=== PATIENT | male | born 1950 | race Caucasian/White ===

== ENCOUNTER 2023-01-31 09:30 | Emergency (ER) | payer OTHER ==
[2023-01-31 09:45] VITALS: BMI 25.8
[2023-01-31 10:07] LABS: BASO % 0.7 % (0-2.0); EOS % 2.3 % (0-4.5); HEMATOCRIT 37.2 % (35.4-49); HEMOGLOBIN 12.9 GM/dL (11.7-16.9); LYMPH % 12.1 % (8-40); MCH 28.6 pg (25.7-33.7); MCHC 34.7 g/dl (32.0-35.9); MEAN CELL VOLUME 82.5 fl (80-96); MEAN PLT VOLUME 8.3 fl (7.5-11.1); MONO % 6.4 % (3.8-10.2); NEUT % 78.5 % (42.8-82.8); PLATELET COUNT 313 10^3/uL (134-434); RBC 4.51 M/mm3 (4.00-5.60); RDW 13.6 % (11.9-15.9); WHITE BLOOD COUNT 12.9 K/mm3 (4.0-10.0)
[2023-01-31] MEDS ORDERED: LIDOCAINE HCL 2% (20ML MULTI-DOSE VIAL) ONE (10:14)
[2023-01-31 10:30] LABS: POTASSIUM 4.6 mmol/L (3.5-5.1)
[2023-01-31 10:31] LABS: CALCIUM 9.3 mg/dL (8.5-10.1)
[2023-01-31 10:33] LABS: ALBUMIN 3.2 g/dl (3.4-5.0); BLOOD UREA NITROGEN 34.4 mg/dL (7-18)
[2023-01-31 10:35] LABS: CREATININE 1.6 mg/dL (0.55-1.3)
[2023-01-31 10:37] LABS: BILIRUBIN,TOTAL 0.5 mg/dL (0.2-1); TOT PROT 6.9 g/dl (6.4-8.2)
[2023-01-31 11:09] VITALS: RESP 15
[2023-01-31] MEDS ORDERED: LIDOCAINE HCL 2% (50ML VIAL) SQ ONE (11:12)
[2023-01-31] MEDS ORDERED: DIPHTH,PERTUSS(ACELL),TET 0.5 ML DISP.SYRIN IM ONE ×2 (11:13→11:15)
[2023-01-31] MEDS ORDERED: SODIUM CHLORIDE 0.9% 500 ML INFUS.BAG IV ONE (11:37)
[2023-01-31] MEDS ORDERED: QUEtiapine FUMARATE 25 MG TABLET PO ONE (12:06)
[2023-01-31] MEDS ORDERED: QUEtiapine FUMARATE 25 MG TABLET ONE (12:08)
[2023-01-31 12:28] LABS: EPI CELLS 1 /uL (0-25.1); HYALINE CASTS 0 /uL (0-3.1); PH,URINE 7.5 (5.0-8.0); URINE APPEARANCE CLEAR; URINE BACTERIA 2 /uL (0-1359); URINE BILIRUBIN NEGATIVE (NEGATIVE); URINE COLOR YELLOW; URINE GLUCOSE (UA) NEGATIVE (NEGATIVE); URINE KETONE NEGATIVE (NEGATIVE); URINE LEUK ESTERASE NEGATIVE (NEGATIVE); URINE NITRITE NEGATIVE (NEGATIVE); URINE PROTEIN 1+ (NEGATIVE); URINE RBC 12 /uL (0-23.9); URINE UROBILINOGEN 0.2 mg/dL (0.2-1.0); URINE WBC 1 /uL (0-25.8)
[2023-01-31] MEDS ORDERED: HALOPERIDOL LACTATE 5 MG/ML IM ONE ×2 (14:02→14:06)
[2023-01-31 15:17] VITALS: BP 110/73; PULSE 68; TEMP 98.4
== END 2023-01-31 15:35 | disposition short-term general hospital (02) ==
LOC: JER 09:30
PROC: 0HQ1XZZ Repair Face Skin, External Approach (ICD-10-PCS; principal; 2023-01-31)
PROC: 3E023GC Introduction of Other Therapeutic Substance into Muscle, Percutaneous Approach (ICD-10-PCS; 2023-01-31)
PROC: 3E0234Z Introduction of Serum, Toxoid and Vaccine into Muscle, Percutaneous Approach (ICD-10-PCS; 2023-01-31)
DX: S22.32XA Fracture of one rib, left side, initial encounter for closed fracture (principal); S12.120A Other displaced dens fracture, initial encounter for closed fracture; S01.112A Laceration without foreign body of left eyelid and periocular area, initial encounter; W19.XXXA Unspecified fall, initial encounter
CPT/HCPCS: 36415; 70450-TC; 71045-TC-FY; 72125-TC; 72170-TC-FY; 80053; 81003; 82570; 83935; 84300; 84484; 85025; 87086; 90715; 93005; 93010; 99285-25

== ENCOUNTER 2023-03-02 11:35 | Inpatient (IN) | payer OTHER ==
[2023-03-02] MEDS ORDERED: VANCOMYCIN 1,000 MG in DEXTROSE 5%-WATER - 250 ML IVPB ONE (11:58)
[2023-03-02] MEDS ORDERED: ACETAMINOPHEN 1000 MG/100 ML BAG IVPB ONE (11:58)
[2023-03-02] MEDS ORDERED: FENTANYL NS IVPB 500 MCG/100 ML BAG IVPB SCH (12:00)
[2023-03-02] MEDS ORDERED: CEFEPIME HCL 1 GM VIAL (RESTRICTED TO ID) IVPB ONE (12:01)
[2023-03-02] MEDS ORDERED: FENTANYL NS IVPB 500 MCG/100 ML BAG IVPB ONE (12:04)
[2023-03-02] MEDS ORDERED: ACETAMINOPHEN INJECTION 100 ML IVPB ONE (12:04)
[2023-03-02] MEDS ORDERED: CEFEPIME 1 GM/100 ML BAG IVPB ONE (12:05)
[2023-03-02] MEDS ORDERED: VANCOMYCIN 1 GRAM (PRE-DOCKED) 1,000 MG/250 ML BAG IVPB ONE (12:05)
[2023-03-02 12:07] LABS: ARTERIAL BLD GAS O2 SATURATION 75.4 % (95-98); ARTERIAL BLOOD GAS BASE EXCESS -8.5 mmol/L (-2-2); ARTERIAL BLOOD GAS PO2 45.4 mmHg (80-100); ARTERIAL BLOOD GAS pH 7.267 (7.350-7.450)
[2023-03-02 12:26] LABS: BASO % 0.3 % (0-2.0); MCH 27.7 pg (25.7-33.7); MCHC 32.3 g/dl (32.0-35.9); MEAN CELL VOLUME 85.8 fl (80-96); MEAN PLT VOLUME 9.9 fl (7.5-11.1); MONO % 11.2 % (3.8-10.2); NEUT % 80.5 % (42.8-82.8); PLATELET COUNT 143 10^3/uL (134-434); RBC 4.32 M/mm3 (4.00-5.60); RDW 15.6 % (11.9-15.9); WHITE BLOOD COUNT 17.3 K/mm3 (4.0-10.0)
[2023-03-02 12:34] LABS: INR 1.4 (0.83-1.09); PROTHROMBIN TIME (PATIENT) 16.2 SEC (9.7-13.0)
[2023-03-02 12:36] LABS: ACTIVATED PTT 26.5 SECONDS (25.2-36.5)
[2023-03-02 12:48] LABS: CHLORIDE 141 mmol/L (98-107); POTASSIUM 3.1 mmol/L (3.5-5.1)
[2023-03-02 12:50] LABS: CALCIUM 7.3 mg/dL (8.5-10.1)
[2023-03-02 12:51] LABS: CO2 18 mmol/L (21-32); GLUCOSE,RANDOM 168 mg/dL (74-106)
[2023-03-02 12:54] LABS: CREATININE 3.9 mg/dL (0.55-1.3); SGOT/AST 24 U/L (15-37); SGPT/ALT 31 U/L (13-61)
[2023-03-02 12:55] LABS: BILIRUBIN,TOTAL 0.5 mg/dL (0.2-1)
[2023-03-02 12:57] LABS: ALK PHOS 69 U/L (45-117)
[2023-03-02] MEDS ORDERED: NOREPINEPHRINE BITARTRATE 4,000 MCG in DEXTROSE 5%-WATER - 496 ML IV SCH ×2 (13:00→13:15)
[2023-03-02 13:02] LABS: ANION GAP 2 mmol/L (4-13); BLOOD UREA NITROGEN 115.8 mg/dL (7-18)
[2023-03-02 13:03] LABS: SODIUM 160 mmol/L (136-145)
[2023-03-02] MEDS: LACTATED RINGERS SOLUTION 1,000 ML/1,000 ML INFUS.BAG IV SCH (13:07)
[2023-03-02 13:35] LABS: LACTIC ACID 2.9 mmol/L (0.4-2.0)
[2023-03-02 14:01] LABS: EPI CELLS 20 /uL (0-25.1); HYALINE CASTS 4 /uL (0-3.1); URINE APPEARANCE CLOUDY; URINE BACTERIA 74 /uL (0-1359); URINE BILIRUBIN NEGATIVE (NEGATIVE); URINE COLOR YELLOW; URINE GLUCOSE (UA) NEGATIVE (NEGATIVE); URINE KETONE NEGATIVE (NEGATIVE); URINE LEUK ESTERASE NEGATIVE (NEGATIVE); URINE NITRITE NEGATIVE (NEGATIVE); URINE PROTEIN 2+ (NEGATIVE); URINE RBC 51 /uL (0-23.9); URINE UROBILINOGEN 0.2 mg/dL (0.2-1.0); URINE WBC 23 /uL (0-25.8)
[2023-03-02] MEDS: HEPARIN NA (PORCINE) 5,000 UNITS/ML 1ML VIAL SQ SCH ×2 (14:13→21:04)
[2023-03-02] MEDS: KCL 10 MEQ IVPB 10 MEQ/100 ML INFUS.BAG IVPB SCH ×3 (14:13→18:51)
[2023-03-02] MEDS ORDERED: HEPARIN NA (PORCINE) 5,000 UNITS/ML 1ML VIAL ONE (14:15)
[2023-03-02] MEDS ORDERED: KCL 10 MEQ IVPB 30 MEQ/300 ML INFUS.BAG IVPB ONE (14:15)
[2023-03-02] MEDS ORDERED: NOREPINEPHRINE 0.9 % NACL 8 MG/250 ML BAG IVPB SCH (18:00)
[2023-03-02 18:22] LABS: CHLORIDE 133 mmol/L (98-107); POTASSIUM 4.2 mmol/L (3.5-5.1); SODIUM 154 mmol/L (136-145)
[2023-03-02 18:25] LABS: ANION GAP -2 mmol/L (4-13); CO2 23 mmol/L (21-32)
[2023-03-02 18:30] LABS: BLOOD UREA NITROGEN 113.3 mg/dL (7-18); GLUCOSE,RANDOM 214 mg/dL (74-106)
[2023-03-02] MEDS: NOREPINEPHRINE BITARTRATE/D5W 8 MG/250 ML BAG IVPB SCH (18:35)
[2023-03-02] MEDS: PROPOFOL 1,000,000 MCG/100 ML VIAL IVPB SCH (18:36)
[2023-03-02] MEDS: ATORVASTATIN CA 80 MG TABLET (FP) GT SCH (20:10)
[2023-03-02] MEDS: VALPROATE SODIUM 250 MG/5 ML UNIT DOSE CUP GT SCH ×2 (20:10→23:31)
[2023-03-02] MEDS: CHLORHEXIDINE GLUCONATE 4% CLEANSER FOR DECOLONIZATION TP SCH (21:03)
[2023-03-02] MEDS: CEFEPIME 1 GM in DEXTROSE 5%-WATER 100 ML IVPB SCH (21:03)
[2023-03-02] MEDS: SENNOSIDES 8.8 MG/5 ML SYRUP GT SCH (21:04)
[2023-03-02] MEDS: SILVER SULFADIAZINE 1% TOP CREAM 400 GM JAR TP SCH (21:04)
[2023-03-02] MEDS: DOCUSATE NA 100 MG/10 ML UNIT-DOSE CUPS GT SCH (21:04)
[2023-03-02] MEDS: DONEPEZIL HCL 5 MG TABLET (FP) GT SCH (21:04)
[2023-03-02] MEDS: MEMANTINE HCL 5 MG TABLET (UD) GT SCH (21:04)
[2023-03-02] MEDS: MUPIROCIN 2% TOPICAL OINTMENT FOR DECOLONIZATION NS SCH (21:05)
[2023-03-02] MEDS: INSULIN SLIDING SCALE (NOVOLOG) 1 VIAL SQ SCH (21:07)
[2023-03-02] MEDS ORDERED: DOCUSATE SODIUM 100 MG CAPSULE (FP) PO SCH (22:00)
[2023-03-03] MEDS: HEPARIN NA (PORCINE) 5,000 UNITS/ML 1ML VIAL SQ SCH ×3 (06:13→21:19)
[2023-03-03] MEDS: VALPROATE SODIUM 250 MG/5 ML UNIT DOSE CUP GT SCH ×3 (06:13→18:10)
[2023-03-03] MEDS: INSULIN SLIDING SCALE (NOVOLOG) 1 VIAL SQ SCH ×4 (06:13→21:21)
[2023-03-03 07:52] LABS: POTASSIUM 3.9 mmol/L (3.5-5.1)
[2023-03-03 07:55] LABS: MAGNESIUM 2.7 mg/dL (1.8-2.4)
[2023-03-03 07:56] LABS: BLOOD UREA NITROGEN 101.6 mg/dL (7-18)
[2023-03-03 07:58] LABS: CREATININE 3.4 mg/dL (0.55-1.3); PHOSPHOROUS 3.8 mg/dL (2.5-4.9)
[2023-03-03 08:00] LABS: BILIRUBIN,TOTAL 0.3 mg/dL (0.2-1); TOT PROT 5.3 g/dl (6.4-8.2)
[2023-03-03 08:14] LABS: HEMATOCRIT 37.5 % (35.4-49); HEMOGLOBIN 11.6 GM/dL (11.7-16.9); MCH 27.2 pg (25.7-33.7); MEAN CELL VOLUME 87.8 fl (80-96); MEAN PLT VOLUME 10.1 fl (7.5-11.1); PLATELET COUNT 159 10^3/uL (134-434); RBC 4.27 M/mm3 (4.00-5.60); RDW 15.2 % (11.9-15.9); WHITE BLOOD COUNT 13.6 K/mm3 (4.0-10.0)
[2023-03-03] MEDS ORDERED: LACTATED RINGERS SOLUTION 1,000 ML/1,000 ML INFUS.BAG IV STA (08:19)
[2023-03-03] MEDS ORDERED: FENTANYL IVPB 500 MCG/100 ML BAG IVPB SCH (09:00)
[2023-03-03] MEDS: MUPIROCIN 2% TOPICAL OINTMENT FOR DECOLONIZATION NS SCH ×2 (11:07→21:19)
[2023-03-03] MEDS: CEFEPIME 1 GM in DEXTROSE 5%-WATER 100 ML IVPB SCH ×2 (11:14→21:20)
[2023-03-03] MEDS: ASPIRIN 81 MG CHEWABLE TABLETS GT SCH (11:14)
[2023-03-03] MEDS: DOCUSATE NA 100 MG/10 ML UNIT-DOSE CUPS GT SCH ×2 (11:14→21:19)
[2023-03-03] MEDS: SILVER SULFADIAZINE 1% TOP CREAM 400 GM JAR TP SCH (11:20)
[2023-03-03] MEDS: MEMANTINE HCL 5 MG TABLET (UD) GT SCH ×2 (13:12→21:20)
[2023-03-03] MEDS: LACTATED RINGERS SOLUTION 1,000 ML/1,000 ML INFUS.BAG IV SCH (13:13)
[2023-03-03] MEDS: PROPOFOL 1,000,000 MCG/100 ML VIAL IVPB SCH ×2 (18:11→21:33)
[2023-03-03] MEDS: ATORVASTATIN CA 80 MG TABLET (FP) GT SCH (20:45)
[2023-03-03] MEDS: DONEPEZIL HCL 5 MG TABLET (FP) GT SCH (21:19)
[2023-03-03] MEDS: CHLORHEXIDINE GLUCONATE 4% CLEANSER FOR DECOLONIZATION TP SCH (21:20)
[2023-03-03] MEDS: SENNOSIDES 8.8 MG/5 ML SYRUP GT SCH (21:21)
[2023-03-03] MEDS: NOREPINEPHRINE BITARTRATE/D5W 8 MG/250 ML BAG IVPB SCH (21:34)
[2023-03-04] MEDS: LACTATED RINGERS SOLUTION 1,000 ML/1,000 ML INFUS.BAG IV SCH (00:58)
[2023-03-04 06:12] LABS: BASO % 0.4 % (0-2.0); EOS % 3.5 % (0-4.5); HEMATOCRIT 33.7 % (35.4-49); HEMOGLOBIN 10.6 GM/dL (11.7-16.9); LYMPH % 5.8 % (8-40); MCH 27.4 pg (25.7-33.7); MCHC 31.5 g/dl (32.0-35.9); MEAN CELL VOLUME 87.1 fl (80-96); MEAN PLT VOLUME 9.5 fl (7.5-11.1); MONO % 6.9 % (3.8-10.2); NEUT % 83.4 % (42.8-82.8); PLATELET COUNT 148 10^3/uL (134-434); RBC 3.86 M/mm3 (4.00-5.60); WHITE BLOOD COUNT 14.8 K/mm3 (4.0-10.0)
[2023-03-04 06:24] LABS: INR 1.28 (0.83-1.09); PROTHROMBIN TIME (PATIENT) 14.8 SEC (9.7-13.0)
[2023-03-04 06:27] LABS: ACTIVATED PTT 32.5 SECONDS (25.2-36.5)
[2023-03-04] MEDS: VALPROATE SODIUM 250 MG/5 ML UNIT DOSE CUP GT SCH ×4 (06:30→18:05)
[2023-03-04] MEDS: HEPARIN NA (PORCINE) 5,000 UNITS/ML 1ML VIAL SQ SCH ×3 (06:30→21:56)
[2023-03-04 06:46] LABS: CHLORIDE 136 mmol/L (98-107); POTASSIUM 3.7 mmol/L (3.5-5.1)
[2023-03-04 06:49] LABS: ALBUMIN 1.8 g/dl (3.4-5.0); CO2 25 mmol/L (21-32); GLUCOSE,RANDOM 117 mg/dL (74-106); MAGNESIUM 2.4 mg/dL (1.8-2.4)
[2023-03-04 06:50] LABS: ANION GAP 0 mmol/L (4-13); BLOOD UREA NITROGEN 74.1 mg/dL (7-18); SODIUM 161 mmol/L (136-145)
[2023-03-04 06:52] LABS: CREATININE 2.4 mg/dL (0.55-1.3); PHOSPHOROUS 2.7 mg/dL (2.5-4.9); SGOT/AST 26 U/L (15-37); SGPT/ALT 26 U/L (13-61)
[2023-03-04 06:53] LABS: BILIRUBIN,TOTAL 0.3 mg/dL (0.2-1)
[2023-03-04 06:54] LABS: ALK PHOS 77 U/L (45-117)
[2023-03-04] MEDS: INSULIN SLIDING SCALE (NOVOLOG) 1 VIAL SQ SCH ×4 (07:14→22:31)
[2023-03-04] MEDS: CEFEPIME 1 GM in DEXTROSE 5%-WATER 100 ML IVPB SCH ×2 (09:30→21:56)
[2023-03-04] MEDS: DOCUSATE NA 100 MG/10 ML UNIT-DOSE CUPS GT SCH ×2 (09:32→22:32)
[2023-03-04] MEDS: MUPIROCIN 2% TOPICAL OINTMENT FOR DECOLONIZATION NS SCH ×2 (09:32→21:56)
[2023-03-04] MEDS: ASPIRIN 81 MG CHEWABLE TABLETS GT SCH (09:32)
[2023-03-04] MEDS: MEMANTINE HCL 5 MG TABLET (UD) GT SCH ×2 (09:35→22:32)
[2023-03-04] MEDS ORDERED: VANCOMYCIN/WATER FOR INJ (PEG) 1,000 MG/200 ML BAG IVPB ONE (10:11)
[2023-03-04] MEDS ORDERED: DEXTROSE 5%-WATER - 1,000 ML IV SCH ×3 (11:15→20:52)
[2023-03-04] MEDS: SILVER SULFADIAZINE 1% TOP CREAM 400 GM JAR TP SCH (15:51)
[2023-03-04 20:49] LABS: POTASSIUM 3.3 mmol/L (3.5-5.1)
[2023-03-04 20:50] LABS: CALCIUM 8.1 mg/dL (8.5-10.1)
[2023-03-04 20:54] LABS: CREATININE 1.9 mg/dL (0.55-1.3)
[2023-03-04] MEDS: KCL 20 MEQ PREMIX BAG 100 ML IVPB SCH ×2 (21:30→22:48)
[2023-03-04] MEDS: CHLORHEXIDINE GLUCONATE 4% CLEANSER FOR DECOLONIZATION TP SCH (21:56)
[2023-03-04] MEDS: ATORVASTATIN CA 80 MG TABLET (FP) GT SCH (22:32)
[2023-03-04] MEDS: DONEPEZIL HCL 5 MG TABLET (FP) GT SCH (22:32)
[2023-03-04] MEDS: SENNOSIDES 8.8 MG/5 ML SYRUP GT SCH (22:33)
[2023-03-05] MEDS: VALPROATE SODIUM 250 MG/5 ML UNIT DOSE CUP GT SCH ×3 (01:06→11:32)
[2023-03-05] MEDS: HEPARIN NA (PORCINE) 5,000 UNITS/ML 1ML VIAL SQ SCH ×3 (05:17→23:00)
[2023-03-05] MEDS: INSULIN SLIDING SCALE (NOVOLOG) 1 VIAL SQ SCH ×4 (06:00→22:54)
[2023-03-05 06:58] LABS: HEMATOCRIT 36.1 % (35.4-49); HEMOGLOBIN 11.6 GM/dL (11.7-16.9); MCH 27.4 pg (25.7-33.7); MCHC 32.1 g/dl (32.0-35.9); MEAN CELL VOLUME 85.5 fl (80-96); MEAN PLT VOLUME 9.6 fl (7.5-11.1); PLATELET COUNT 156 10^3/uL (134-434); RBC 4.22 M/mm3 (4.00-5.60); RDW 14.8 % (11.9-15.9); WHITE BLOOD COUNT 14.7 K/mm3 (4.0-10.0)
[2023-03-05 07:28] LABS: POTASSIUM 3.3 mmol/L (3.5-5.1)
[2023-03-05 07:32] LABS: BLOOD UREA NITROGEN 50.1 mg/dL (7-18); MAGNESIUM 2.1 mg/dL (1.8-2.4)
[2023-03-05 07:33] LABS: PHOSPHOROUS 1.5 mg/dL (2.5-4.9)
[2023-03-05 07:35] LABS: BILIRUBIN,TOTAL 0.6 mg/dL (0.2-1); CREATININE 1.7 mg/dL (0.55-1.3); TOT PROT 5.4 g/dl (6.4-8.2)
[2023-03-05 09:10] LABS: ANISOCYTOSIS 0; MACROCYTOSIS 0
[2023-03-05] MEDS: CEFEPIME 1 GM in DEXTROSE 5%-WATER 100 ML IVPB SCH ×2 (09:10→22:59)
[2023-03-05] MEDS: KCL 20 MEQ PREMIX BAG 100 ML IVPB SCH ×2 (09:11→11:15)
[2023-03-05] MEDS: MEMANTINE HCL 5 MG TABLET (UD) GT SCH (09:46)
[2023-03-05] MEDS: DOCUSATE NA 100 MG/10 ML UNIT-DOSE CUPS GT SCH (09:46)
[2023-03-05] MEDS: ASPIRIN 81 MG CHEWABLE TABLETS GT SCH (09:46)
[2023-03-05] MEDS: MUPIROCIN 2% TOPICAL OINTMENT FOR DECOLONIZATION NS SCH (09:50)
[2023-03-05] MEDS: SILVER SULFADIAZINE 1% TOP CREAM 400 GM JAR TP SCH (09:50)
[2023-03-05] MEDS: NAPH,MB-DB/K PH,MBDB POWDER PACKET PO SCH ×2 (11:32→16:02)
[2023-03-05] MEDS: DEXTROSE 5%-WATER - 1,000 ML with POTASSIUM CHLORIDE 10 MEQ IV SCH (16:24)
[2023-03-05] MEDS ORDERED: VANCOMYCIN 1 GM PREMIX - 1 GM/200 ML BAG IVPB ONE (16:37)
[2023-03-05] MEDS: POTASSIUM CHLORIDE 10 MEQ in DEXTROSE 5%-WATER - 1,000 ML IV SCH (20:00)
[2023-03-05] MEDS ORDERED: ATORVASTATIN CA 80 MG TABLET (FP) GT SCH (21:00)
[2023-03-05] MEDS ORDERED: MEMANTINE HCL 5 MG TABLET (UD) GT SCH (22:00)
[2023-03-05] MEDS ORDERED: DONEPEZIL HCL 5 MG TABLET (FP) GT SCH (22:00)
[2023-03-05] MEDS ORDERED: DOCUSATE NA 100 MG/10 ML UNIT-DOSE CUPS GT SCH (22:00)
[2023-03-05] MEDS ORDERED: SENNOSIDES 8.8 MG/5 ML SYRUP GT SCH (22:00)
[2023-03-05] MEDS: MELATONIN 5 MG TABLETS PO SCH ×2 (22:59→23:29)
[2023-03-05] MEDS: DOCUSATE NA 100 MG/10 ML UNIT-DOSE CUPS PO SCH (22:59)
[2023-03-05] MEDS: SENNOSIDES 8.8 MG/5 ML SYRUP PO SCH ×2 (22:59→23:30)
[2023-03-05] MEDS: MEMANTINE HCL 5 MG TABLET (UD) PO SCH ×2 (22:59→23:31)
[2023-03-05] MEDS: DONEPEZIL HCL 5 MG TABLET (FP) PO SCH ×2 (23:00→23:22)
[2023-03-05] MEDS: TAMSULOSIN HCL 0.4 MG CAP PO SCH ×2 (23:00→23:31)
[2023-03-05] MEDS: DIVALPROEX SODIUM 500 MG TABLET E.C. PO SCH (23:41)
[2023-03-06] MEDS: HEPARIN NA (PORCINE) 5,000 UNITS/ML 1ML VIAL SQ SCH ×3 (05:44→22:00)
[2023-03-06] MEDS: INSULIN SLIDING SCALE (NOVOLOG) 1 VIAL SQ SCH ×4 (06:52→22:16)
[2023-03-06] MEDS: VANCOMYCIN/WATER FOR INJ (PEG) 1,000 MG/200 ML BAG IVPB SCH (08:40)
[2023-03-06] MEDS ORDERED: ASPIRIN 81 MG CHEWABLE TABLETS GT SCH (10:00)
[2023-03-06 10:53] LABS: POTASSIUM 4.3 mmol/L (3.5-5.1)
[2023-03-06 10:54] LABS: HEMATOCRIT 37.5 % (35.4-49); HEMOGLOBIN 12.5 GM/dL (11.7-16.9); MCHC 33.5 g/dl (32.0-35.9); MEAN CELL VOLUME 83.6 fl (80-96); MEAN PLT VOLUME 9.3 fl (7.5-11.1); PLATELET COUNT 164 10^3/uL (134-434); RBC 4.48 M/mm3 (4.00-5.60); WHITE BLOOD COUNT 16.3 K/mm3 (4.0-10.0)
[2023-03-06 10:59] LABS: CALCIUM 8.5 mg/dL (8.5-10.1)
[2023-03-06 11:00] LABS: BLOOD UREA NITROGEN 34.9 mg/dL (7-18); MAGNESIUM 1.9 mg/dL (1.8-2.4)
[2023-03-06 11:01] LABS: CREATININE 1.5 mg/dL (0.55-1.3)
[2023-03-06 11:03] LABS: BILIRUBIN,TOTAL 0.6 mg/dL (0.2-1); PHOSPHOROUS 2.3 mg/dL (2.5-4.9); TOT PROT 5.9 g/dl (6.4-8.2)
[2023-03-06] MEDS: CEFEPIME 1 GM in DEXTROSE 5%-WATER 100 ML IVPB SCH ×2 (11:18→22:01)
[2023-03-06] MEDS: DIVALPROEX SODIUM 500 MG TABLET E.C. PO SCH ×2 (11:19→22:00)
[2023-03-06] MEDS: ASPIRIN 81 MG CHEWABLE TABLETS PO SCH (11:19)
[2023-03-06] MEDS: DOCUSATE NA 100 MG/10 ML UNIT-DOSE CUPS PO SCH ×2 (11:19→21:59)
[2023-03-06] MEDS: MEMANTINE HCL 5 MG TABLET (UD) PO SCH ×2 (11:20→21:59)
[2023-03-06] MEDS: SILVER SULFADIAZINE 1% TOP CREAM 400 GM JAR TP SCH (11:20)
[2023-03-06 11:51] LABS: ANISOCYTOSIS 0; MACROCYTOSIS 0
[2023-03-06] MEDS: POTASSIUM CHLORIDE 10 MEQ in DEXTROSE 5%-WATER - 1,000 ML IV SCH (17:57)
[2023-03-06] MEDS: DONEPEZIL HCL 5 MG TABLET (FP) PO SCH (21:59)
[2023-03-06] MEDS: MELATONIN 5 MG TABLETS PO SCH (21:59)
[2023-03-06] MEDS: ATORVASTATIN CA 80 MG TABLET (FP) PO SCH (21:59)
[2023-03-06] MEDS: TAMSULOSIN HCL 0.4 MG CAP PO SCH (21:59)
[2023-03-06] MEDS: SENNOSIDES 8.8 MG/5 ML SYRUP PO SCH (22:00)
[2023-03-07] MEDS: HEPARIN NA (PORCINE) 5,000 UNITS/ML 1ML VIAL SQ SCH ×3 (06:07→22:31)
[2023-03-07] MEDS: INSULIN SLIDING SCALE (NOVOLOG) 1 VIAL SQ SCH ×4 (06:15→22:34)
[2023-03-07] MEDS: VANCOMYCIN/WATER FOR INJ (PEG) 1,000 MG/200 ML BAG IVPB SCH (06:31)
[2023-03-07 08:54] LABS: HEMATOCRIT 34.9 % (35.4-49); HEMOGLOBIN 11.5 GM/dL (11.7-16.9); MCH 27.7 pg (25.7-33.7); MCHC 32.9 g/dl (32.0-35.9); MEAN CELL VOLUME 84.1 fl (80-96); MEAN PLT VOLUME 8.5 fl (7.5-11.1); PLATELET COUNT 166 10^3/uL (134-434); RBC 4.15 M/mm3 (4.00-5.60); RDW 14.8 % (11.9-15.9); WHITE BLOOD COUNT 15.5 K/mm3 (4.0-10.0)
[2023-03-07] MEDS: MEMANTINE HCL 5 MG TABLET (UD) PO SCH ×2 (09:14→22:28)
[2023-03-07] MEDS: ASPIRIN 81 MG CHEWABLE TABLETS PO SCH (09:14)
[2023-03-07] MEDS: DOCUSATE NA 100 MG/10 ML UNIT-DOSE CUPS PO SCH ×2 (09:14→22:27)
[2023-03-07] MEDS: CEFEPIME 1 GM in DEXTROSE 5%-WATER 100 ML IVPB SCH ×2 (09:14→23:29)
[2023-03-07] MEDS: DIVALPROEX SODIUM 500 MG TABLET E.C. PO SCH ×2 (09:15→22:31)
[2023-03-07] MEDS: SILVER SULFADIAZINE 1% TOP CREAM 400 GM JAR TP SCH (09:15)
[2023-03-07 09:23] LABS: ANISOCYTOSIS 2+; MACROCYTOSIS 1+
[2023-03-07 09:31] LABS: POTASSIUM 3.3 mmol/L (3.5-5.1)
[2023-03-07 10:11] LABS: CALCIUM 8.2 mg/dL (8.5-10.1)
[2023-03-07 10:12] LABS: BLOOD UREA NITROGEN 34.3 mg/dL (7-18)
[2023-03-07 10:15] LABS: CREATININE 1.3 mg/dL (0.55-1.3)
[2023-03-07] MEDS: POTASSIUM CHLORIDE 10 MEQ in DEXTROSE 5%-WATER - 1,000 ML IV SCH (16:29)
[2023-03-07] MEDS ORDERED: POTASSIUM CHLORIDE TABS 20 MEQ TABLET.ER (FP) PO ONE ×2 (20:02→23:56)
[2023-03-07] MEDS: ATORVASTATIN CA 80 MG TABLET (FP) PO SCH (21:27)
[2023-03-07] MEDS: SENNOSIDES 8.8 MG/5 ML SYRUP PO SCH (22:27)
[2023-03-07] MEDS: MELATONIN 5 MG TABLETS PO SCH (22:28)
[2023-03-07] MEDS: TAMSULOSIN HCL 0.4 MG CAP PO SCH (22:30)
[2023-03-07] MEDS: DONEPEZIL HCL 5 MG TABLET (FP) PO SCH (22:30)
[2023-03-08] MEDS: HEPARIN NA (PORCINE) 5,000 UNITS/ML 1ML VIAL SQ SCH ×3 (06:38→23:00)
[2023-03-08] MEDS: INSULIN SLIDING SCALE (NOVOLOG) 1 VIAL SQ SCH ×3 (06:39→16:58)
[2023-03-08] MEDS: DEXTROSE 5%-WATER - 1,000 ML with POTASSIUM CHLORIDE 10 MEQ IV SCH (07:26)
[2023-03-08 09:10] LABS: HEMATOCRIT 36.6 % (35.4-49); HEMOGLOBIN 12.1 GM/dL (11.7-16.9); MCH 27.8 pg (25.7-33.7); MEAN CELL VOLUME 84.3 fl (80-96); MEAN PLT VOLUME 8.8 fl (7.5-11.1); PLATELET COUNT 203 10^3/uL (134-434); RBC 4.34 M/mm3 (4.00-5.60); RDW 15.3 % (11.9-15.9); WHITE BLOOD COUNT 14.6 K/mm3 (4.0-10.0)
[2023-03-08 09:52] LABS: MAGNESIUM 1.8 mg/dL (1.8-2.4)
[2023-03-08 09:55] LABS: BILIRUBIN,DIRECT 0.1 mg/dL (0.0-0.2)
[2023-03-08 09:56] LABS: BILIRUBIN,TOTAL 0.6 mg/dL (0.2-1)
[2023-03-08 09:57] LABS: TOT PROT 6.2 g/dl (6.4-8.2)
[2023-03-08 10:00] LABS: POTASSIUM 3.3 mmol/L (3.5-5.1)
[2023-03-08 10:04] LABS: CALCIUM 8.3 mg/dL (8.5-10.1)
[2023-03-08 10:05] LABS: BLOOD UREA NITROGEN 34.4 mg/dL (7-18)
[2023-03-08 10:08] LABS: CREATININE 1.3 mg/dL (0.55-1.3)
[2023-03-08] MEDS: MEMANTINE HCL 5 MG TABLET (UD) PO SCH ×2 (10:19→23:01)
[2023-03-08] MEDS: DIVALPROEX SODIUM 500 MG TABLET E.C. PO SCH (10:19)
[2023-03-08] MEDS: CEFEPIME 1 GM in DEXTROSE 5%-WATER 100 ML IVPB SCH ×2 (10:19→23:00)
[2023-03-08] MEDS: ASPIRIN 81 MG CHEWABLE TABLETS PO SCH (10:19)
[2023-03-08] MEDS: DOCUSATE NA 100 MG/10 ML UNIT-DOSE CUPS PO SCH ×2 (10:19→23:00)
[2023-03-08] MEDS: SILVER SULFADIAZINE 1% TOP CREAM 400 GM JAR TP SCH (12:45)
[2023-03-08] MEDS: POTASSIUM CHLORIDE 10 MEQ in DEXTROSE 5%-WATER - 1,000 ML IV SCH ×2 (15:33→17:01)
[2023-03-08] MEDS: ATORVASTATIN CA 80 MG TABLET (FP) PO SCH (21:02)
[2023-03-08] MEDS: MELATONIN 5 MG TABLETS PO SCH (23:01)
[2023-03-08] MEDS: DONEPEZIL HCL 5 MG TABLET (FP) PO SCH (23:01)
[2023-03-08] MEDS: TAMSULOSIN HCL 0.4 MG CAP PO SCH (23:01)
[2023-03-09] MEDS: INSULIN SLIDING SCALE (NOVOLOG) 1 VIAL SQ SCH ×5 (00:01→21:56)
[2023-03-09] MEDS: SENNOSIDES 8.8 MG/5 ML SYRUP PO SCH ×2 (00:01→22:02)
[2023-03-09] MEDS: DIVALPROEX SODIUM 500 MG TABLET E.C. PO SCH ×3 (00:01→21:55)
[2023-03-09] MEDS: POTASSIUM CHLORIDE 10 MEQ in DEXTROSE 5%-WATER - 1,000 ML IV SCH ×2 (05:37→11:44)
[2023-03-09] MEDS: HEPARIN NA (PORCINE) 5,000 UNITS/ML 1ML VIAL SQ SCH ×3 (05:38→21:55)
[2023-03-09 09:06] LABS: POTASSIUM 3.3 mmol/L (3.5-5.1)
[2023-03-09 09:07] LABS: CALCIUM 8.4 mg/dL (8.5-10.1)
[2023-03-09 09:08] LABS: BLOOD UREA NITROGEN 33.9 mg/dL (7-18)
[2023-03-09 09:11] LABS: CREATININE 1.2 mg/dL (0.55-1.3)
[2023-03-09] MEDS: MEMANTINE HCL 5 MG TABLET (UD) PO SCH ×2 (09:36→21:55)
[2023-03-09] MEDS: DOCUSATE NA 100 MG/10 ML UNIT-DOSE CUPS PO SCH ×2 (09:36→21:55)
[2023-03-09] MEDS: ASPIRIN 81 MG CHEWABLE TABLETS PO SCH (09:36)
[2023-03-09] MEDS: CEFEPIME 1 GM in DEXTROSE 5%-WATER 100 ML IVPB SCH (09:41)
[2023-03-09] MEDS ORDERED: VANCOMYCIN/WATER FOR INJ (PEG) 1,000 MG/200 ML BAG IVPB SCH (10:00)
[2023-03-09] MEDS ORDERED: POTASSIUM CHLORIDE ORAL LIQUID 20 MEQ/15 ML PO ONE (14:30)
[2023-03-09] MEDS: D5-1/2NS+40 MEQ KCL - 40 MEQ/1,000 ML INFUS.BAG IV SCH (17:02)
[2023-03-09 21:07] VITALS: BMI 27.5
[2023-03-09] MEDS: DONEPEZIL HCL 5 MG TABLET (FP) PO SCH (21:55)
[2023-03-09] MEDS: ATORVASTATIN CA 80 MG TABLET (FP) PO SCH (21:55)
[2023-03-09] MEDS: MELATONIN 5 MG TABLETS PO SCH (21:56)
[2023-03-09] MEDS: TAMSULOSIN HCL 0.4 MG CAP PO SCH (21:56)
[2023-03-09] MEDS: SULFAMETHOXAZOLE/TRIMETHOPRIM 800MG/160MG D.S. TABLET PO SCH (21:56)
[2023-03-10] MEDS: HEPARIN NA (PORCINE) 5,000 UNITS/ML 1ML VIAL SQ SCH ×3 (06:06→21:56)
[2023-03-10] MEDS: INSULIN SLIDING SCALE (NOVOLOG) 1 VIAL SQ SCH ×4 (06:09→22:10)
[2023-03-10] MEDS: D5-1/2NS+40 MEQ KCL - 40 MEQ/1,000 ML INFUS.BAG IV SCH (09:19)
[2023-03-10] MEDS: DOCUSATE NA 100 MG/10 ML UNIT-DOSE CUPS PO SCH ×2 (09:20→21:56)
[2023-03-10] MEDS: DIVALPROEX SODIUM 500 MG TABLET E.C. PO SCH ×2 (09:20→21:56)
[2023-03-10] MEDS: SULFAMETHOXAZOLE/TRIMETHOPRIM 800MG/160MG D.S. TABLET PO SCH ×2 (09:21→21:56)
[2023-03-10] MEDS: MEMANTINE HCL 5 MG TABLET (UD) PO SCH ×2 (09:21→21:56)
[2023-03-10] MEDS: ASPIRIN 81 MG CHEWABLE TABLETS PO SCH (09:21)
[2023-03-10 09:26] LABS: HEMATOCRIT 35.2 % (35.4-49); HEMOGLOBIN 12.1 GM/dL (11.7-16.9); MCH 28.4 pg (25.7-33.7); MCHC 34.3 g/dl (32.0-35.9); MEAN CELL VOLUME 82.7 fl (80-96); MEAN PLT VOLUME 8.3 fl (7.5-11.1); PLATELET COUNT 261 10^3/uL (134-434); RBC 4.26 M/mm3 (4.00-5.60); RDW 15.2 % (11.9-15.9); WHITE BLOOD COUNT 13.2 K/mm3 (4.0-10.0)
[2023-03-10 09:43] LABS: POTASSIUM 3.7 mmol/L (3.5-5.1)
[2023-03-10 09:52] LABS: BLOOD UREA NITROGEN 23.9 mg/dL (7-18); CALCIUM 8.5 mg/dL (8.5-10.1)
[2023-03-10 09:54] LABS: CREATININE 1.1 mg/dL (0.55-1.3); PHOSPHOROUS 2.6 mg/dL (2.5-4.9)
[2023-03-10 09:56] LABS: BILIRUBIN,TOTAL 0.6 mg/dL (0.2-1); MAGNESIUM 1.8 mg/dL (1.8-2.4); TOT PROT 6.1 g/dl (6.4-8.2)
[2023-03-10] MEDS: DEXTROSE 5%-WATER - 1,000 ML IV SCH ×2 (13:24→16:41)
[2023-03-10] MEDS ORDERED: QUEtiapine FUMARATE 25 MG TABLET PO ONE (13:42)
[2023-03-10] MEDS ORDERED: DEXTROSE 5%-WATER - 1,000 ML IV SCH (13:45)
[2023-03-10] MEDS: ATORVASTATIN CA 80 MG TABLET (FP) PO SCH (21:56)
[2023-03-10] MEDS: DONEPEZIL HCL 5 MG TABLET (FP) PO SCH (21:56)
[2023-03-10] MEDS: MELATONIN 5 MG TABLETS PO SCH (21:56)
[2023-03-10] MEDS: TAMSULOSIN HCL 0.4 MG CAP PO SCH (21:57)
[2023-03-10] MEDS: SENNOSIDES 8.8 MG/5 ML SYRUP PO SCH (22:03)
[2023-03-11] MEDS: HEPARIN NA (PORCINE) 5,000 UNITS/ML 1ML VIAL SQ SCH ×2 (05:56→14:07)
[2023-03-11] MEDS: INSULIN SLIDING SCALE (NOVOLOG) 1 VIAL SQ SCH ×2 (06:00→12:01)
[2023-03-11] MEDS: DIVALPROEX SODIUM 500 MG TABLET E.C. PO SCH ×2 (10:33→12:42)
[2023-03-11] MEDS: DOCUSATE NA 100 MG/10 ML UNIT-DOSE CUPS PO SCH ×2 (10:33→12:39)
[2023-03-11] MEDS: SULFAMETHOXAZOLE/TRIMETHOPRIM 800MG/160MG D.S. TABLET PO SCH ×2 (10:34→12:38)
[2023-03-11] MEDS: MEMANTINE HCL 5 MG TABLET (UD) PO SCH ×2 (10:34→12:42)
[2023-03-11] MEDS: ASPIRIN 81 MG CHEWABLE TABLETS PO SCH ×2 (10:34→12:38)
[2023-03-11 10:43] LABS: HEMOGLOBIN 11.4 GM/dL (11.7-16.9); MCH 26.7 pg (25.7-33.7); MCHC 31.8 g/dl (32.0-35.9); MEAN PLT VOLUME 8.1 fl (7.5-11.1); PLATELET COUNT 295 10^3/uL (134-434); RBC 4.28 M/mm3 (4.00-5.60)
[2023-03-11 11:01] LABS: POTASSIUM 3.4 mmol/L (3.5-5.1)
[2023-03-11 11:20] LABS: CALCIUM 8.6 mg/dL (8.5-10.1)
[2023-03-11 11:21] LABS: BLOOD UREA NITROGEN 20.2 mg/dL (7-18); MAGNESIUM 1.9 mg/dL (1.8-2.4)
[2023-03-11 11:24] LABS: BILIRUBIN,TOTAL 0.6 mg/dL (0.2-1); CREATININE 1.1 mg/dL (0.55-1.3); PHOSPHOROUS 2.4 mg/dL (2.5-4.9)
[2023-03-11 11:25] LABS: TOT PROT 6.2 g/dl (6.4-8.2)
[2023-03-11] MEDS: DEXTROSE 5%-WATER - 1,000 ML IV SCH (12:01)
[2023-03-11] MEDS ORDERED: NAPH,MB-DB/K PH,MBDB POWDER PACKET PO SCH (14:00)
[2023-03-11 14:24] VITALS: BP 134/69; PULSE 84; RESP 15; TEMP 98.2
== END 2023-03-11 14:48 | DRG 871 ==
LOC: JER 11:35 → JERBED 13:45 → JICU 15:08 → J4W 16:45 → JICU 16:50 → J6S 03-05 18:42
PROVIDERS: ADMIT Internal Medicine Pulmonary Disease; ATTEND Internal Medicine
PROC: 05HM33Z Insertion of Infusion Device into Right Internal Jugular Vein, Percutaneous Approach (ICD-10-PCS; 2023-03-02)
PROC: B543ZZA Ultrasonography of Right Jugular Veins, Guidance (ICD-10-PCS; 2023-03-02)
PROC: 5A1945Z Respiratory Ventilation, 24-96 Consecutive Hours (ICD-10-PCS; principal; 2023-03-03)
PROC: 0BH17EZ Insertion of Endotracheal Airway into Trachea, Via Natural or Artificial Opening (ICD-10-PCS; 2023-03-03)
DX: A41.9 Sepsis, unspecified organism (principal); J15.212 Pneumonia due to Methicillin resistant Staphylococcus aureus; J96.01 Acute respiratory failure with hypoxia; R65.21 Severe sepsis with septic shock; E87.20 Acidosis, unspecified; I24.89 Other forms of acute ischemic heart disease; N17.9 Acute kidney failure, unspecified; E87.0 Hyperosmolality and hypernatremia; F02.82 Dementia in other diseases classified elsewhere, unspecified severity, with psychotic disturbance; J98.11 Atelectasis; G30.9 Alzheimer's disease, unspecified; E86.0 Dehydration; E78.5 Hyperlipidemia, unspecified; N40.0 Benign prostatic hyperplasia without lower urinary tract symptoms; D72.829 Elevated white blood cell count, unspecified; N18.30 Chronic kidney disease, stage 3 unspecified; I25.10 Atherosclerotic heart disease of native coronary artery without angina pectoris; Z95.1 Presence of aortocoronary bypass graft; K59.00 Constipation, unspecified
CPT/HCPCS: 0241U-QW; 31500; 36415; 36600; 71045-TC-FY; 76870-TC; 80048; 80053; 80076; 81003; 82553; 82803; 82962; 83036; 83605; 83735; 84100; 84484; 85025; 85027; 85610; 85730; 86850; 86900; 86901; 87040; 87070; 87086; 87186; 87205; 93005; 93010; 93306-TC; 94002; 99285-25; G0480; J1644